=== PATIENT | female | born 1930 | race Caucasian/White ===

== ENCOUNTER 2017-07-25 12:12 | Emergency (ER) | payer OTHER, BC ==
[~2017-07-25] VITALS: Ht 165.1 cm; Wt 54.0 kg
--- NOTE | ~2017-07-25 | EKG ---
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 : 1930 Requested By: Jaswant Reyes Order Number: [id number] MD: Quinton Levin Measurements Intervals [place] Rate: 69 P: 87 VA: 153 QRS: 18 QRSD: 95 T: -7 QT: 407 QTc: 436 Interpretive Statements Sinus rhythm Borderline T abnormalities, inferior leads Compared to ECG 06/18/2010 07:10:46 T-wave abnormality now present Ventricular premature complex(es) no longer present Electronically Signed On 07-26-2017 14:22:57 EXPLOSIVE OPERATOR FUSE by Quinton Levin [email or web address] <ELECTRONICALLY SIGNED> By: Quinton Levin MD, [facility] 07/26/17 1422 130 02 Quinton Levin MD, [facility] /EPI
[~2017-07-25 12:12] MED LIST: ACTONEL 35 MG35 M1 PO; ACTONEL PO; ADULT LOW DOSE81 MG PO; AMLODIPINE; ASPIRIN325 PO; BENICAR20 MG PO; CALCIUM; CALCIUM PO; DOXYCYCLINE 10100 MG PO; LOPRESSOR 12.12.5 MG PO; MULTIPLE VITAM1 EAC1 PO; MULTIVITAMINS PO; NATURAL VITA100 UNIT PO; PLAVIX 75 MG TA75 MG PO; PREVACID DIS; PROVIGIL; PROVIGIL PO; RANITIDINE 150150 MG PO; SIMVASTATIN40 MG PO; SINGULAIR 10 MG10 M1 PO; SINGULAIR 10 MG10 MG PO; SYMBICORT; SYMBICORT80 MCG/4.1 INH; TOPROL XL25 MG PO; VITAMIN D400 UNI1 PO; ZANTAC 150MG T150 MG PO; ZOCOR40 MG PO
[2017-07-25 13:15] LABS: HEMOGLOBIN 12.9 gm/dL (12.0-15.0); MCH 32.3 pg (26.0-34.0); MCHC 34.1 g/dL (28.0-37.0); MCV 94.7 fL (80.0-100.0); PLATELET COUNT 217 thou/uL (150-400); RBC 4.01 mil/uL (4.20-5.00); RDW 13.6 % (10.5-14.5); WBC 10.7 thou/uL (4.0-11.0)
[2017-07-25 13:32] LABS: ANION GAP 7 mmol/L (7-16); BUN 22 mg/dL (7-18); CALCIUM 9.6 mg/dL (8.5-10.1); CHLORIDE 99 mmol/L (98-107); CO2 29 mmol/L (21-32); CREATININE 1.1 mg/dL (0.6-1.0); GLUCOSE 147 mg/dL (74-106); POTASSIUM 3.8 mmol/L (3.5-5.1); SODIUM 135 mmol/L (136-145)
[2017-07-25 13:41] LABS: ABSOLUTE NEUTROPHILS 9.8 thou/uL (1.4-8.2); ALBUMIN 3.8 g/dL (3.4-5.0); ANISOCYTOSIS SLIGHT; LIPASE 227 U/L (73-393); SGOT 21 U/L (15-37); SGPT 17 U/L (30-65); TOTAL BILIRUBIN 0.4 mg/dL (<0.1-1.0); TOTAL PROTEIN 7.4 g/dL (6.4-8.2); TROPONIN-I < 0.04 ng/mL (<0.06)
[2017-07-25] MEDS ORDERED: BYSTOLIC 5 MG5 M1 PO (13:56)
[2017-07-25] MEDS ORDERED: CALCIUM 600 +1 EAC8 PO (13:58)
[2017-07-25] MEDS ORDERED: RANITIDINE HCL300 M1 PO (14:00)
[2017-07-25] MEDS ORDERED: RISEDRONATE SOD35 M1 PO (14:00)
[2017-07-25 14:17] LABS: URINE BILIRUBIN NEGATIVE (Negative); URINE BLOOD NEGATIVE (Negative); URINE CLARITY CLEAR; URINE COLOR YELLOW; URINE GLUCOSE-RANDOM* NEGATIVE (Negative); URINE KETONES NEGATIVE (Negative); URINE LEUKOCYTES-REFLEX NEGATIVE (Negative); URINE NITRITE-REFLEX NEGATIVE (Negative); URINE PROTEIN (DIPSTICK) NEGATIVE (Negative); URINE SPECIFIC GRAVITY >= 1.030 (1.005-1.035); URINE UROBILINOGEN 0.2 E.U./dl (0.2-1.0)
[2017-07-25] MEDS ORDERED: ZOFRAN ODT4 MG PO (15:20)
[2017-07-25 16:00] VITALS: BP 104/44
== END 2017-07-25 16:01 | disposition home or self-care (01) ==
LOC: ER 12:12
PROVIDERS: Physician Assistant
DX: R11.2 Nausea with vomiting, unspecified (principal); M54.5 Low back pain; T50.995A Adverse effect of other drugs, medicaments and biological substances, initial encounter; E78.5 Hyperlipidemia, unspecified; I10 Essential (primary) hypertension; J45.909 Unspecified asthma, uncomplicated; M19.90 Unspecified osteoarthritis, unspecified site; K21.9 Gastro-esophageal reflux disease without esophagitis; M81.0 Age-related osteoporosis without current pathological fracture; J42 Unspecified chronic bronchitis; Z90.89 Acquired absence of other organs; Z98.890 Other specified postprocedural states; Z88.8 Allergy status to other drugs, medicaments and biological substances; Z88.5 Allergy status to narcotic agent; Z88.1 Allergy status to other antibiotic agents; Z88.0 Allergy status to penicillin; Z91.018 Allergy to other foods; Z88.6 Allergy status to analgesic agent; Z88.2 Allergy status to sulfonamides; Y92.89 Other specified places as the place of occurrence of the external cause

== ENCOUNTER → 2017-07-28 | Outpatient (CLI) | payer OTHER, BC ==
[~2017-07-28] MED LIST changes: +BYSTOLIC 5 MG5 M1 PO; +CALCIUM 600 +1 EAC8 PO; +RANITIDINE HCL300 M1 PO; +RISEDRONATE SOD35 M1 PO; +TRAMADOL 50 MG50 MG PO; +ZOFRAN ODT4 MG PO
== END ==
LOC: RAD 14:40
DX: M51.36 Other intervertebral disc degeneration, lumbar region (principal); M41.86 Other forms of scoliosis, lumbar region; M47.896 Other spondylosis, lumbar region; I70.0 Atherosclerosis of aorta

== ENCOUNTER 2017-07-31 08:23 | Observation (INO) | payer OTHER, BC ==
[~2017-07-31] VITALS: Ht 165.1 cm; Wt 54.0 kg
[~2017-07-31 08:23] MED LIST changes: -TRAMADOL 50 MG50 MG PO
[2017-07-31 10:45] VITALS: BP 104/51
[2017-07-31] MEDS ORDERED: TRAMADOL 50 MG50 MG PO (10:51)
[2017-07-31 13:19] LABS: CALCIUM 9.4 mg/dL (8.5-10.1); POTASSIUM 4.3 mmol/L (3.5-5.1)
[2017-07-31 13:27] LABS: INR 1.1; PROTIME 11.2 Seconds (9.3-11.4)
[2017-07-31 17:19] VITALS: BP 104/51
[2017-08-01] MEDS ORDERED: TRAMADOL 50 MG50 MG PO (09:23)
== END 2017-07-31 18:09 | disposition home or self-care (01) ==
LOC: MRI 08:23 → 4W 16:10 → MRI 16:16 → 4W 16:17 → 3W 16:19
PROVIDERS: Radiology Diagnostic Radiology
DX: S32.030A Wedge compression fracture of third lumbar vertebra, initial encounter for closed fracture (principal); X58.XXXA Exposure to other specified factors, initial encounter; Y93.89 Activity, other specified; Y92.89 Other specified places as the place of occurrence of the external cause; Y99.8 Other external cause status; M81.0 Age-related osteoporosis without current pathological fracture

== ENCOUNTER 2017-08-01 08:16 | Emergency (ER) | payer OTHER, BC ==
[~2017-08-01] VITALS: Ht 162.6 cm; Wt 54.0 kg
[~2017-08-01 08:16] MED LIST changes: +TRAMADOL 50 MG50 MG PO
[2017-08-01 08:26] VITALS: BP 115/74
[2017-08-01] MEDS ORDERED: TRAMADOL 50 MG50 MG PO (09:23)
== END 2017-08-01 09:30 | disposition home or self-care (01) ==
LOC: ER 08:16
DX: S20.219A Contusion of unspecified front wall of thorax, initial encounter (principal); I25.2 Old myocardial infarction; I10 Essential (primary) hypertension; J45.909 Unspecified asthma, uncomplicated; J40 Bronchitis, not specified as acute or chronic; M19.90 Unspecified osteoarthritis, unspecified site; K21.9 Gastro-esophageal reflux disease without esophagitis; J44.9 Chronic obstructive pulmonary disease, unspecified; Z98.890 Other specified postprocedural states; Z88.6 Allergy status to analgesic agent; Z88.0 Allergy status to penicillin; Z91.018 Allergy to other foods; Z88.8 Allergy status to other drugs, medicaments and biological substances; W19.XXXA Unspecified fall, initial encounter; Y93.89 Activity, other specified; Y92.091 Bathroom in other non-institutional residence as the place of occurrence of the external cause; Y99.8 Other external cause status

== ENCOUNTER 2018-09-28 10:04 | Emergency (ER) | payer OTHER, BC ==
[~2018-09-28] VITALS: Ht 165.1 cm; Wt 48.1 kg
[~2018-09-28 10:04] MED LIST changes: -ACCUNEB SO1.25 MG/1 INH; -OSELB75 PO; -TESSALON PERLE100 MG
[2018-09-28 10:57] LABS: HEMATOCRIT 38.7 % (37.0-47.0); HEMOGLOBIN 12.9 gm/dL (12.0-15.0); MCH 31.7 pg (26.0-34.0); MCHC 33.4 g/dL (28.0-37.0); MCV 94.8 fL (80.0-100.0); PLATELET COUNT 131 thou/uL (150-400); RBC 4.08 mil/uL (4.20-5.00); RDW 13.7 % (10.5-14.5); WBC 5.2 thou/uL (4.0-11.0)
[2018-09-28 11:03] LABS: CALCIUM 9.5 mg/dL (8.5-10.1); CREATININE 1.1 mg/dL (0.6-1.0); POTASSIUM 4.2 mmol/L (3.5-5.1)
[2018-09-28 11:40] LABS: ABSOLUTE NEUTROPHILS 4.1 thou/uL (1.4-8.2); ATYPICAL LYMPHS 3 %; METAMYELOCYTES 1 %
[2018-09-28 11:41] LABS: LARGE PLATELETS OCCASIONAL
[2018-09-28] MEDS ORDERED: OSELB75 PO (11:51)
[2018-09-28 12:07] VITALS: BP 110/58
== END 2018-09-28 12:08 | disposition home or self-care (01) ==
LOC: ER 10:04
PROVIDERS: Emergency Medicine
DX: J11.1 Influenza due to unidentified influenza virus with other respiratory manifestations (principal); E78.5 Hyperlipidemia, unspecified; I10 Essential (primary) hypertension; M19.90 Unspecified osteoarthritis, unspecified site; J44.9 Chronic obstructive pulmonary disease, unspecified; K21.9 Gastro-esophageal reflux disease without esophagitis; M81.0 Age-related osteoporosis without current pathological fracture; Z88.1 Allergy status to other antibiotic agents; Z88.2 Allergy status to sulfonamides; Z88.5 Allergy status to narcotic agent; Z88.0 Allergy status to penicillin; Z88.6 Allergy status to analgesic agent; Z88.8 Allergy status to other drugs, medicaments and biological substances; Z91.018 Allergy to other foods; Z98.890 Other specified postprocedural states

== ENCOUNTER → 2018-09-28 | Outpatient (CLI) | payer OTHER, BC ==
[~2018-09-28] MED LIST changes: +ACCUNEB SO1.25 MG/1 INH; +OSELB75 PO; +TESSALON PERLE100 MG
== END ==
LOC: RAD 09:24
DX: R05 Cough (principal); I51.7 Cardiomegaly; Z88.5 Allergy status to narcotic agent; Z88.8 Allergy status to other drugs, medicaments and biological substances; Z88.0 Allergy status to penicillin; Z88.2 Allergy status to sulfonamides

== ENCOUNTER 2018-10-01 11:25 | Inpatient (IN) | payer OTHER, BC ==
[~2018-10-01] VITALS: Ht 165.1 cm; Wt 45.8 kg
--- NOTE | ~2018-10-01 | HC ---
[facility] [place] [address] CONSULTATION Name: SILASKAIDEN Harinder Room #: 430-P ADM IN M.R.#: [id number] Admission: 10/01/18 ������������������ Attend Phys: Dedrick Smith MD Discharge: ������������������ Date of : [birth year] Report #: [id number] THIS REPORT FOR: //name// CC: Dedrick Brand DATE OF SERVICE: 10/04/2018 HISTORY OF PRESENT ILLNESS: The patient is an 88-year-old white female admitted with cough, serology from prior ED visit positive for influenza A. She had been placed on Tamiflu before, but was having more and more problems with inability to care for herself. She has been admitted for further medical treatment. She does have a prior history of COPD and chronic bronchitis as well as hypertension. She has complaints of generalized weakness. We are seeing her in rehabilitation medicine consultation. PAST MEDICAL HISTORY: Includes a prior OK with stenting in 2008, sinus surgery 1999, hypertension, asthma, chronic bronchitis, arthritis, GERD, osteoporosis, COPD, compression fracture of L3. MEDICATIONS: Please see the full medication listing. This includes vitamins, herbals, and supplements. ALLERGIES: SHE HAS MULTIPLE ALLERGIES, PLEASE SEE THE FULL LIST. HABITS: No history of tobacco or alcohol abuse. SOCIAL HISTORY: Lives alone in house, 2 steps in. Used a 4-prong cane. She has involved friends. REVIEW OF SYSTEMS: Complains of a cough. Still feels weak involving both knees, especially when she tries to stand up. No current complaints of chest pain, shortness of breath, abdominal discomfort. No complaints of headache, focal extremity pain complaints, bowel or bladder changes, fever, chills were noted. PHYSICAL EXAMINATION: GENERAL: She is a relatively thin 88-year-old white female, in no obvious distress. She appears alert, appropriate and a reasonable historian. VITAL SIGNS: Temperature is 97.9, pulse 75, respirations 14, blood pressure 116/72. The patient is alert. HEENT: Appeared to be benign. NEUROLOGIC: Cranial nerves are grossly intact. Facies are symmetric. She has functional range of motion of both upper extremities with strength grade 4-/5. DTRs are trace to 1. Lower extremities, no focal calf swelling, functional range of motion with strength of grade 4-/5. DTRs are trace to 1. She has been [address] [address] CONSULTATION Name: KAIDEN ROSEN Harinder Room #: 430-[facility] IN M.R.#: [id number] Admission: 10/01/18 ������������������ Attend Phys: Dedrick Smith MD Discharge: ������������������ Date of : [birth year] Report #: [id number] getting up with nursing using the cane back and forth to the bathroom. In occupational therapy, they have worked with her and she has been standby assistance for bed mobility, ambulating to and from the bathroom with her cane with standby assistance. She does need min assist off the toilet. ASSESSMENT: An 88-year-old white female with the following problem list: 1. Influenza A pneumonia. She is on Tamiflu. 2. Chronic obstructive pulmonary disease without exacerbation. 3. Hypertension. 4. Hyperlipidemia. 5. Osteoarthritis with history of L3 compression fracture. PLAN: I do not see that she meets the medical necessity criteria for an acute 5-North inpatient rehabilitation stay. OT had thought she may be able to go home with home health, though the patient is uncertain if she is quite strong enough. She actually refused her initial PT evaluation, we will have them evaluate again. If she is not quite able to return back home, would have consideration for care home facility stay revisited with the patient. We will otherwise be glad to follow along with you while she is still here in the hospital. Thank you for asking us to assist in this patient's care. ��������������������������������������������� ���������������������������������������� By: ��������������������������������������������� [id number] Teofilo Gray MD /PMT
[~2018-10-01 11:25] MED LIST changes: +OSELB75 PO
[2018-10-01 12:23] VITALS: BP 106/86
[2018-10-01] MEDS ORDERED: TESSALON PERLE100 MG (14:55)
[2018-10-01 16:12] VITALS: BP 128/85
--- NOTE | 2018-10-01 17:02 | NUR ---
ASSESSMENT-PT LIVES AT HOME ALONE. SHE HAS FRIENDS/NEIGHBORS THAT CHECK ON HER. PT DOES HER OWN COOKING AND WHAT LITTLE CLEANING THAT GETS DONE. SHE HAS SOMEONETHAT DOES HER LAUNDRY WHICH IS LOCATED IN THE BASEMENT. PT HAS NOT HAD ANY HH SERVICES. PT USES A CANE TO GET AROUND AND DOES HER OWN SHOWER. FOLLOWING TO ASSIST WITH DC PLANNING.
[2018-10-01 18:19] LABS: HEMATOCRIT 35.5 % (37.0-47.0); HEMOGLOBIN 11.9 gm/dL (12.0-15.0); MCH 31.5 pg (26.0-34.0); MCHC 33.6 g/dL (28.0-37.0); MCV 93.7 fL (80.0-100.0); PLATELET COUNT 192 thou/uL (150-400); RDW 13.7 % (10.5-14.5); WBC 8.8 thou/uL (4.0-11.0)
--- NOTE | 2018-10-01 18:30 | NUR ---
PT RECIEVED DIRECT ADMIT TO RM 430 AT 1145. PT ORIENTED TO UNIT. DR. KIM IN TO SEE PT. WEAK NONPRODUCTIVE COUGH. IN ISOLATION FOR INFLUENZA. EATING AND DRINKING WELL. AMBULATES W/ STANDBY ASSIST TO THE BATHROOM. NO C/O PAIN.
[2018-10-01 18:39] LABS: ALBUMIN 2.8 g/dL (3.4-5.0); CALCIUM 8.5 mg/dL (8.5-10.1); CREATININE 1.2 mg/dL (0.6-1.0); POTASSIUM 3.8 mmol/L (3.5-5.1); TOTAL BILIRUBIN 0.4 mg/dL (<0.1-1.0); TOTAL PROTEIN 6.7 g/dL (6.4-8.2)
[2018-10-01 19:47] VITALS: BP 110/56
[2018-10-01 20:46] LABS: URINE BILIRUBIN NEGATIVE (Negative); URINE BLOOD NEGATIVE (Negative); URINE CLARITY CLEAR; URINE COLOR YELLOW; URINE GLUCOSE-RANDOM* 1+ (Negative); URINE KETONES TRACE (Negative); URINE LEUKOCYTES-REFLEX NEGATIVE (Negative); URINE NITRITE-REFLEX NEGATIVE (Negative); URINE PROTEIN (DIPSTICK) TRACE (Negative)
[2018-10-02 05:09] VITALS: BP 135/49
--- NOTE | 2018-10-02 05:29 | NUR ---
A/O, calm and cooperative; vss, afebrile; denied pain, no n/v. urine and sputum specimen sent to lab, UA lab result checked. will keep monitoring.
[2018-10-02 07:09] VITALS: BP 112/95
--- NOTE | 2018-10-02 12:09 | NUR ---
ASSUMED PATIENT CARE AT 0715. PATIENT RESTING IN ROOM; OBSERVED MINOR COUGHING. LUNGS CLEAR TO AUSCULTATION. MEDICATIONS DELAYED R/T TEMPORARY COMPUTER MALFUNCTION. TAKES MEDICATION WHOLE ALL AT ONE TIME. ASSESSED BY P.T., ASSESSED NO P.T. NEEDED AT THIS TIME. PATIENT ABLE TO TAKE SELF TO B.R. WITH CANE, STAND BY ASSIST. CONTINUE TO MONITOR.
[2018-10-02 20:30] VITALS: BP 131/62
--- NOTE | 2018-10-02 23:54 | NUR ---
ASSUMED PT CARE 1899. PT ALERT AND ORIENTED. REASSESSMENT COMPLETED. VSS. MAINTAING DROPLET PRECAUTIONS. PT CALL LIGHT AND PERSONAL BELONINGS WITHIN REACH. WILL CONTINUE POC UNTIL EOS.
[2018-10-03 04:30] VITALS: BP 111/48
[2018-10-03 08:28] VITALS: BP 103/56
--- NOTE | 2018-10-03 10:12 | NUR ---
ASSUMED CARE OF PT AT 0700. ASSESSMENT COMPLETED. A&O,X4. C/O GENERALIZED WEAKNESS. INTERMITTENT COUGH NOTED. DROPLET PRECAUTIONS IN PLACE FOR INFLUENZA. ROOM AIR. CLEAR/DIM LUNGS. REGULAR HEART SOUNDS. LOW AM BP - 103/56. AM BP MEDS HELD, PHYSICIAN NOTIFIED. PHYSICIAN ORDERED PARAMETERS - DO NOT GIVE BP MEDS IF SBP <120. WILL CONTINUE TO MONITOR.
[2018-10-03 16:30] VITALS: BP 100/48
[2018-10-03 20:50] VITALS: BP 122/64
[2018-10-04 05:50] VITALS: BP 120/67
--- NOTE | 2018-10-04 06:44 | NUR ---
A/O, vss, afebrile. Patient got up to the bathroom without calling, the staff educated the patient every time and made sure the bed alarm on, the pathway was clear, the light at the door was on. The patient didnot have fall. Will pass this on to the day nurse to keep educating the patient.
[2018-10-04 08:26] VITALS: BP 116/72
[2018-10-04] MEDS ORDERED: ACCUNEB SO1.25 MG/1 INH (14:21)
--- NOTE | 2018-10-04 14:47 | NUR ---
FAXED REFERRAL TO [facility] [place] SPOKE WITH YULIET IN ADM. SHE RECEIVED REFERRAL AND WILL REVIEW. PT. IS READY FOR DISCHARGE TODAY. DCP TO FOLLOW.
--- NOTE | 2018-10-04 16:14 | NUR ---
PT LEFT AT THIS TIME FOR [facility]. LEFT W/C VAN. ALL BELONGINGS PACKED AND SENT WITH PATIENT. PT W/O PAIN OR RESP DISTRESS AT DISCHARGE
--- NOTE | 2018-10-04 16:26 | NUR ---
GAVE REPORT AT THIS TIME TO BRIT SANCHEZ AT [facility].
[2018-10-04 16:33] VITALS: BP 121/52
--- NOTE | 2018-10-04 17:29 | NUR ---
Discussed rec for snf with pt and she is [place] agreeable [place] [facility] [place] INFORMED HER FRIEND NABILA AKHTAR OF THIS WELL. 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
== END 2018-10-04 17:00 | DRG 193 ==
LOC: 4E 11:25
PROVIDERS: ADMIT Internal Medicine
DX: J10.08 Influenza due to other identified influenza virus with other specified pneumonia (principal); E43 Unspecified severe protein-calorie malnutrition; N18.4 Chronic kidney disease, stage 4 (severe); E46 Unspecified protein-calorie malnutrition; Z68.1 Body mass index [BMI] 19.9 or less, adult; J44.9 Chronic obstructive pulmonary disease, unspecified; K21.9 Gastro-esophageal reflux disease without esophagitis; I12.9 Hypertensive chronic kidney disease with stage 1 through stage 4 chronic kidney disease, or unspecified chronic kidney disease; E83.42 Hypomagnesemia; M19.90 Unspecified osteoarthritis, unspecified site; E78.5 Hyperlipidemia, unspecified; M81.0 Age-related osteoporosis without current pathological fracture; I25.2 Old myocardial infarction; Z88.1 Allergy status to other antibiotic agents; Z88.5 Allergy status to narcotic agent; Z91.018 Allergy to other foods; Z88.0 Allergy status to penicillin; Z88.2 Allergy status to sulfonamides; Z88.8 Allergy status to other drugs, medicaments and biological substances; Z91.048 Other nonmedicinal substance allergy status; Z95.5 Presence of coronary angioplasty implant and graft
CPT/HCPCS: 10783